=== PATIENT | male | born 1995 | race Caucasian/White ===

== ENCOUNTER 2016-07-01 10:14 | Emergency (ER) | payer MEDICAID, OTHER ==
[2016-07-01 10:24] VITALS: RESP 18
--- NOTE | 2016-07-01 10:39 | ED ---
General Adult HPI - General Chief complaint: Wound/Laceration Stated complaint: [facility]-Toe Injury Time Seen by Provider: 07/01/16 10:30 Source: patient, family, RN notes reviewed Mode of arrival: ambulatory Limitations: no limitations - History of Present Illness Initial comments: Patient is a pleasant 20-year-old male presenting to the emergency Department with toe injury. Patient dropped a difficult tool from work approximate the size of a pencil onto his left great toe. Patient has injury to the toenail. Tetanus is up-to-date. Patient was seen at [facility] and was provided Zofran and Toradol and advised to come to the emergency department. No other areas of injury or concern. - Related Data Previous Rx's Medication Instructions Recorded Cephalexin [Keflex] 500 mg PO QID #40 cap 07/01/16 traMADol HCl [Ultram] 50 mg PO Q6H PRN #20 tab 07/01/16 Allergies Allergy/AdvReac Type Severity Reaction Status Date / Time No Known Allergies Allergy Verified 07/01/16 10:52 Review of Systems ROS Statement: Those systems with pertinent positive or pertinent negative responses have been documented in the HPI. ROS Other: All systems not noted in ROS Statement are negative. Constitutional: Denies: fever Eyes: Denies: eye pain ENT: Denies: ear pain Respiratory: Denies: cough Cardiovascular: Denies: chest pain Endocrine: Denies: fatigue Gastrointestinal: Denies: abdominal pain Genitourinary: Denies: urgency Musculoskeletal: Denies: back pain Skin: Denies: rash Neurological: Denies: headache Past Medical History Past Medical History: No Reported History History of Any Multi-Drug Resistant Organisms: MRSA Date of last positivie culture/infection: 2014 MDRO Source:: RIGHT ARM Past Surgical History: No Surgical Hx Reported Additional Past Surgical History / Comment(s): left eye surgery Past Psychological History: No Psychological Hx Reported Smoking Status: Never smoker Past Alcohol Use History: None Reported Past Drug Use History: None Reported General Exam Limitations: no limitations General appearance: alert, in no apparent distress Head exam: Present: atraumatic Eye exam: Present: normal appearance Neck exam: Present: normal inspection. Absent: tenderness Respiratory exam: Present: normal lung sounds bilaterally Cardiovascular Exam: Present: regular rate, normal rhythm GI/Abdominal exam: Present: soft. Absent: tenderness Extremities exam: Present: other (Left great toe with laceration to the toenail from the proximal to distal portion in the midline. Medial side with subungual hematoma.) Neurological exam: Present: alert. Absent: motor sensory deficit Psychiatric exam: Present: normal affect, normal mood Skin exam: Present: normal color Course Vital Signs 07/01/16 10:19 Temperature 97.8 F Pulse Rate 69 Respiratory 18 Rate Blood Pressure 116/66 O2 Sat by Pulse 96 Oximetry - Reevaluation(s) Reevaluation #1: 07/01/16 11:50 Mother states tetanus has been more than 5 years ago and this will be provided. Patient and mother and father are updated regarding possible chip fracture and high risk for infection. There are advised close follow-up with orthopedics as well as [facility]. Patient will be started on antibiotics. Confirmed with patient and family that puncture did not go through the rubber sole of the shoe. Procedures - Procedures Initial comment: Medial portion of left great toenail removed. A digital block performed. Following this area was cleansed with Betadine and irrigated with saline. Following this medial portion of the left great toenail was removed using forceps and scissors. No complication. Area Cleansed with Betadine Laceration and puncture wound. Laceration was closed using 2 sutures of 5-0 nylon. Hemostasis was obtained. - Laceration Laceration #1 Consent Obtained: verbal consent Time Out Performed: Yes Indication: laceration Site: foot (Left great toe) Size (cm): 2 Description: stellate Depth: simple, single layer Pre-repair: irrigated extensively (Also cleaned with Betadine) Type of Sutures: nylon Size of Sutures: 5-0 Number of Sutures: 2 Technique: simple, interrupted Patient Tolerated Procedure: well, no complications, other (Hemostasis obtained) - Nerve Block Consent Obtained: verbal consent Time Out Performed: Yes Local Anesthetic Used: Lidocaine 1% Side: left Nerve Blocks: digital Procedure Successful: Yes Complications: none Patient Tolerated Procedure: well, no complications Disposition Clinical Impression: Laceration of left great toe, Puncture wound of great toe, left, Injury of toenail of left foot, Open toe fracture Disposition: HOME SELF-CARE Condition: Stable Instructions: Laceration (ED) Additional Instructions: Please follow-up with [facility] again today or tomorrow. Please follow-up with orthopedics this week for further evaluation. You are at high risk for infection with this type of injury. Please take antibiotics. Return for increased pain, swelling, redness, discharge, fevers, uncontrolled bleeding, worsening symptoms or any other concerns. 3 times daily wash with soap and water, apply antibiotic ointment, and bandage. Prescriptions: Cephalexin [Keflex] 500 mg PO QID #40 cap traMADol HCl [Ultram] 50 mg PO Q6H PRN #20 tab PRN Reason: Pain/Discomfort Referrals: Chung Ho MD [Primary Care Provider] - 1-2 days Amandeep Ruffin DO [Doctor of Osteopathic Medicine] - 1-2 days Time of Disposition: 11:59
[2016-07-01] MEDS ORDERED: ceFAZolin 1,000 MG VIAL IM STA (11:02)
--- NOTE | 2016-07-01 11:10 | XR ---
EXAMINATION TYPE: XR toes LT DATE OF EXAM: 07/01/2016 11:04 AM COMPARISON: NONE HISTORY: Pain TECHNIQUE: 3 views of the left first digit FINDINGS: There is a radiopaque density which appears be related to the fingernail rather than foreig n body but should be correlated clinically. There is a tiny bony density adjacent to the tuft of the distal phalanx on the AP view which could represent a chip fracture rather than foreign body but shou ld be correlated clinically. IMPRESSION: 1. See above
[2016-07-01] MEDS ORDERED: DIPH,PERTUS(ACELL)TETVAC-LF 0.5 ML VIAL IM ONE (11:50)
[2016-07-01 12:30] VITALS: BP 124/57; PULSE 62; TEMP 98.2
== END 2016-07-01 12:45 | disposition home or self-care (01) ==
LOC: EC 10:14
DX: S92.422B Displaced fracture of distal phalanx of left great toe, initial encounter for open fracture (principal); S91.212A Laceration without foreign body of left great toe with damage to nail, initial encounter; Z23 Encounter for immunization; W20.8XXA Other cause of strike by thrown, projected or falling object, initial encounter; Y92.69 Other specified industrial and construction area as the place of occurrence of the external cause; Y99.0 Civilian activity done for income or pay
CPT/HCPCS: 73660; 90715; 99283; 12001; 96372; 90471; J0690

== ENCOUNTER 2016-07-08 19:58 | Emergency (ER) | payer MEDICAID ==
[2016-07-08 20:36] VITALS: RESP 18
--- NOTE | 2016-07-08 20:56 | ED ---
General Adult HPI - General Chief complaint: Urogenital Stated complaint: Sent by [facility] Time Seen by Provider: 07/08/16 20:49 Source: patient, RN notes reviewed Mode of arrival: ambulatory Limitations: no limitations - History of Present Illness Initial comments: 20-year-old male presents to the emergency department the chief complaint of right testicular pain. Patient states this started about 2 hours ago. Patient states that his right testicle slowly started become tender. Patient does have a history of epididymitis in the past he states this feels much like that. Patient has any burning or stinging with urination or any changes in urination. Patient denies any concern for STDs. Patient states she was concerned due to the continued pain and discomforts without that he should be evaluated. Patient denies any recent fever, chills, shortness of breath, chest pain, back pain, abdominal pain, nausea vomiting, numbness or tingling, dysuria or hematuria, constipation or diarrhea, headaches or visual changes, or any other current symptoms. - Related Data Previous Rx's Medication Instructions Recorded Levofloxacin [Levaquin] 500 mg PO DAILY #10 tab 07/01/16 traMADol HCl [Ultram] 50 mg PO Q6H PRN #20 tab 07/01/16 Doxycycline [Vibramycin] 100 mg PO Q12HR #56 capsule 07/08/16 Allergies Allergy/AdvReac Type Severity Reaction Status Date / Time No Known Allergies Allergy Verified 07/08/16 20:48 Review of Systems ROS Statement: Those systems with pertinent positive or pertinent negative responses have been documented in the HPI. ROS Other: All systems not noted in ROS Statement are negative. Past Medical History Past Medical History: No Reported History History of Any Multi-Drug Resistant Organisms: MRSA Date of last positivie culture/infection: 2014 MDRO Source:: RIGHT ARM Past Surgical History: No Surgical Hx Reported Additional Past Surgical History / Comment(s): left eye surgery Past Psychological History: No Psychological Hx Reported Smoking Status: Never smoker Past Alcohol Use History: None Reported Past Drug Use History: None Reported General Exam Limitations: no limitations General appearance: alert, in no apparent distress Head exam: Present: atraumatic, normocephalic, normal inspection ENT exam: Present: normal exam, mucous membranes moist Neck exam: Present: normal inspection. Absent: tenderness, meningismus, lymphadenopathy Respiratory exam: Present: normal lung sounds bilaterally. Absent: respiratory distress, wheezes, rales, rhonchi, stridor Cardiovascular Exam: Present: regular rate, normal rhythm, normal heart sounds. Absent: systolic murmur, diastolic murmur, rubs, gallop, clicks GI/Abdominal exam: Present: soft, normal bowel sounds. Absent: distended, tenderness, guarding, rebound, rigid exam: Present: normal inspection, testicular tenderness (Right sided), scrotal swelling (Right sided), vertical testicular lie, circumcision. Absent: urethral discharge Neurological exam: Present: alert, oriented X3 Psychiatric exam: Present: normal affect, normal mood Skin exam: Present: warm, dry, intact, normal color. Absent: rash Course Vital Signs 07/08/16 20:33 Temperature 97.9 F Pulse Rate 90 Respiratory 18 Rate Blood Pressure 118/66 O2 Sat by Pulse 100 Oximetry Medical Decision Making - Medical Decision Making 20-year-old male presents emergency Department chief complaint of testicular pain. Patient does appear to have epididymitis. Patient is already on Levaquin at home we will put him on doxycycline and give him the child Rocephin. We did discuss follow-up with urology and he is given their information. Discussed return parameters all his questions. He stated he understood and is in agreement with the plan. - Lab Data Lab Results 07/08/16 Range/Units 21:39 Urine Color Yellow Urine Appearance Clear (Clear) Urine pH 7.0 (5.0-8.0) Ur Specific [place] 1.017 (1.001-1.035) Urine Protein Negative (Negative) Urine Glucose (UA) Negative (Negative) Urine Ketones 1+ H (Negative) Urine Blood Trace H (Negative) Urine Nitrite Negative (Negative) Urine Bilirubin Negative (Negative) Urine Urobilinogen <2.0 (<2.0) mg/dL Ur Leukocyte Esterase Negative (Negative) Urine RBC 3 (0-5) /hpf Urine WBC <1 (0-5) /hpf Urine Mucus Rare H (None) /hpf Urine Yeast (Budding) Rare H (None) /hpf - Radiology Data Radiology results: report reviewed, image reviewed Disposition Clinical Impression: Right epididymitis Disposition: HOME SELF-CARE Condition: Stable Instructions: Epididymitis (ED) Additional Instructions: Please use medication as discussed. Please follow up with family doctor if symptoms have not improved over the next two days. Please return to the emergency room if your symptoms increase or worsen or for any other concerns. Prescriptions: Doxycycline [Vibramycin] 100 mg PO Q12HR #56 capsule Referrals: Chung Ho MD [Primary Care Provider] - 1-2 days Brett Moreno MD [STAFF PHYSICIAN] - 1-2 days Time of Disposition: 21:56
--- NOTE | 2016-07-08 21:23 | US ---
EXAMINATION TYPE: US scrotum with doppler. Grayscale and color Doppler Duplex imaging performed of t perez scrotum. DATE OF EXAM: 07/08/2016 COMPARISON: 02/24/2014 CLINICAL HISTORY: Pain. EXAM MEASUREMENTS: TESTICLES: Right Testicle: 4.3 x 2.8 x 2.7 cm Left Testicle: 4.6 x 2.5 x 2.5 cm EPIDIDYMIS HEAD: Right Epididymis: 1.9 cm Enlarged and heterogeneous with increased vascularity Left Epididymis: 0.9 cm Doppler performed to assess for testicular vascularity; good bilateral color flow and waveforms are s een. There is no evidence of testicular torsion. Presence of hydroceles: No Presence of varicoceles: Yes, on the left IMPRESSION: 1. Right-sided epididymitis. 2. Left-sided varicoceles
[2016-07-08] MEDS ORDERED: cefTRIAXone 250 MG VIAL IM STA (21:39)
[2016-07-08 21:54] LABS: Appearance,Urine Clear (Clear); Bilirubin,Urine Negative (Negative); Glucose,Urine (UA) Negative (Negative); Ketones,Urine 1+ (Negative); Leukocyte Esterase,Urine Negative (Negative); Mucus,Urine Rare /hpf; Nitrite,Urine Negative (Negative); Particle Count 1441; Protein,Urine Negative (Negative); RBC,Urine 3 /hpf (0-5); Specific Gravity,Urine 1.017 (1.001-1.035); UA Billing (MACRO vs. MICRO) MICRO; Urobilinogen,Urine <2.0 mg/dL (<2.0); WBC,Urine <1 /hpf (0-5)
[2016-07-08 21:57] VITALS: BP 133/64; PULSE 88; TEMP 98.2
== END 2016-07-08 22:07 | disposition home or self-care (01) ==
LOC: EC 19:58
DX: N45.1 Epididymitis (principal)
CPT/HCPCS: 81001; 87491; 87591; 87086; 93975; 76870; 99284; 96372; J0696